=== PATIENT | male | born 1975 | race Hispanic/Latino ===

== ENCOUNTER 2018-05-14 08:59 | Emergency (ER) | payer OTHER ==
[2018-05-14] MEDS ORDERED: Ketorolac Tromethamine 60 MG/2 ML VIAL ONE (10:39)
--- NOTE | 2018-05-14 11:08 | RAD ---
THREE VIEWS LEFT SHOULDER: Comparison: None. History: Bilateral shoulder pain for one month. FINDINGS: Three views of the left shoulder shows no evidence of acute fracture or dislocation. Bone islands are seen in the proximal humerus. No degenerative changes are seen. The visualized left thorax is unrema rkable. IMPRESSION: No evidence of acute osseous abnormality. POS: [facility]
--- NOTE | 2018-05-14 11:14 | RAD ---
3 VIEWS RIGHT SHOULDER: Date: 05/14/18 COMPARISON: None. HISTORY: Bilateral shoulder pain for 1 month. FINDINGS: Three views of the right shoulder show no evidence of acute fracture or dislocation. Bone islands are seen in the proximal right humerus. No degenerative changes are seen. IMPRESSION: No evidence of acute osseous abnormality. POS: [facility]
== END 2018-05-14 11:34 | disposition home or self-care (01) ==
LOC: ERS 08:59
DX: M13.811 Other specified arthritis, right shoulder (principal); M25.512 Pain in left shoulder
CPT/HCPCS: 96372; J1885

== ENCOUNTER 2019-10-20 16:54 | Emergency (ER) | payer OTHER ==
[2019-10-21 11:54] LABS: SARS-CoV-2 MS2 Positive; SARS-CoV-2 N Gene Positive; SARS-CoV-2 S Gene Positive; SARS-CoV-2 by NAA DETECTED (NotDetected); SARS-CoV-2 orf1ab Positive
== END 2019-10-20 17:06 | disposition home or self-care (01) ==
LOC: ERS 16:54
DX: U07.1 COVID-19 (principal)
CPT/HCPCS: 87635; 99283; U0003

== ENCOUNTER 2020-02-17 14:34 | Emergency (ER) | payer OTHER ==
--- NOTE | 2020-02-17 15:32 | RAD ---
XR Finger(s) Lt Min 2 View HISTORY: Injury, right finger pain FINDINGS: No fracture or dislocation is identified. No radiopaque foreign body is identified.
[2020-02-17] MEDS ORDERED: Ketorolac Tromethamine 30 MG/ML VIAL ONE (15:36)
[2020-02-17 15:38] LABS: #Basophils 0.1 thou/uL (0.0-0.2); #Lymphocytes 1.8 thou/uL (1.20-3.40); #Monocytes 0.7 thou/uL (0.11-0.59); #Neutrophils 7.3 thou/uL (1.40-6.50); %Basophils 0.8 % (0.0-1.0); %Eosinophils 0.3 % (0.0-10.0); %Lymphocytes 18.3 % (21.0-51.0); %Monocytes 7.4 % (0.0-10.0); %Neutrophils 73.3 % (42.0-75.0); Hemoglobin 13.9 g/dL (14.0-18.0); Mean Corpuscular HGB CONC 34.4 g/dL (32.0-36.0); Mean Corpuscular Hemoglobin 30.8 pg (27.0-31.0); Mean Corpuscular Volume 89.5 fL (78.0-98.0); Platelet Count 259 thou/uL (130-400); RBC Distribution Width 11.8 % (11.5-14.5); Red Blood Cell (RBC) Count 4.53 mill/uL (4.70-6.10)
[2020-02-17 15:59] LABS: ALT (SGPT) 10 U/L (8-55); AST (SGOT) 7 U/L (5-34); Albumin 4.1 g/dL (3.5-5.0); Alkaline Phosphatase 132 U/L (40-110); Anion Gap 13 mmol/L (10-20); BUN (Urea Nitrogen) 13 mg/dL (8.9-20.6); Bilirubin, Total 0.5 mg/dL (0.2-1.2); Calc. Creatinine Clearance 0 mL/min (70-130); Calcium 8.9 mg/dL (7.8-10.44); Carbon Dioxide 25 mmol/L (22-29); Chloride 101 mmol/L (98-107); Estimated GFR-MDRD 58; Globulin 2.9 g/dL (2.4-3.5); Glucose 406 mg/dL (70-105); Potassium 4.1 mmol/L (3.5-5.1); Sodium 135 mmol/L (136-145)
[2020-02-17] MEDS ORDERED: cefTRIAXone\\ROCEPHIN 1 GM VIAL ONE (17:17)
[2020-02-17] MEDS ORDERED: Sodium Chloride 0.9% 100 ML ONE (17:17)
== END 2020-02-17 18:55 | disposition home or self-care (01) ==
LOC: ERS 14:34
DX: L03.011 Cellulitis of right finger (principal); Z79.899 Other long term (current) drug therapy
CPT/HCPCS: 36415; 36416; 80053; 85025; 96365; 96372; J0696; J1885; J3490